=== PATIENT | male | born 1960 | race Caucasian/White ===

== ENCOUNTER 2016-10-10 16:26 | Emergency (ER) | payer OTHER, MEDICARE ==
--- NOTE | 2016-10-10 16:56 | ER Document Report ---
ED Medical Screen (RME) - General Stated Complaint: LEG PAIN Time seen by provider: 16:54 Mode of Arrival: Ambulatory Information source: Patient Notes: 65-year-old male presents to ED for DVTs in bilateral lower extremities. He states that a week ago he got an injection in his neck for due to neck and lower back pain. Saturday she started with his veins all bulging out with pain cramping and burning and bilateral legs. He went for a venous Doppler today and says that he has DVTs both legs beginning in the distal thigh extending through the popliteal veins into the calf veins. I have greeted and performed a rapid initial assessment of this patient. A comprehensive ED assessment and evaluation of the patient, analysis of test results and completion of medical decision making process will be conducted by an additional ED providers. TRAVEL OUTSIDE OF THE [place] IN LAST 30 DAYS: No - Related Data Allergies/Adverse Reactions: No Known Allergies Allergy (Unverified 05/02/12 19:34) Past Medical History Pulmonary Medical History: Denies: Hx Tuberculosis Neurological Medical History: Reports: Hx Migraine Endocrine Medical History: Reports: Hx Diabetes Mellitus Type 2. Denies: Hx Graves' Disease, Hx Hyperthyroidism, Hx Hypothyroidism GI Medical History: Reports: Hx Gastroesophageal Reflux Disease, Hx Irritable Bowel. Denies: Hx Crohn's Disease, Hx Hiatal Hernia, Hx Liver Failure, Hx Ulcer Musculoskeltal Medical History: Reports Hx Arthritis Past Surgical History: Reports: Hx Orthopedic Surgery. Denies: Hx Colostomy, Hx Pacemaker - Immunizations Hx Diphtheria, Pertussis, Tetanus Vaccination: Yes
[2016-10-10 17:28] LABS: PROTHROMBIN TIME 13.8 SEC (11.4-15.4)
[2016-10-10 17:29] LABS: PARTIAL THROMBOPLASTIN TIME 32.3 SEC (23.5-35.8)
[2016-10-10 17:31] LABS: ABSOLUTE EOSINOPHILS # (AUTO) 0.1 10^3/uL (0.0-0.6); ABSOLUTE LYMPHOCYTES (AUTO) 1.8 10^3/uL (0.5-4.7); ABSOLUTE MONOCYTES (AUTO) 0.6 10^3/uL (0.1-1.4); ABSOLUTE NEUT (AUTO) 5.3 10^3/uL (1.7-8.2); BASOPHILS % (AUTO) 0.4 % (0-2); EOSINOPHILS % (AUTO) 1.1 % (0-6); HEMATOCRIT 50.5 % (37.9-51.0); HEMOGLOBIN 16.8 g/dL (13.5-17.0); HGB HCT DIFFERENCE -0.1; LYMPHOCYTES % (AUTO) 23.7 % (13-45); MEAN CORPUSCULAR HEMOGLOBIN 28.3 pg (27.0-33.4); MEAN CORPUSCULAR HGB CONC 33.3 g/dL (32.0-36.0); MEAN CORPUSCULAR VOLUME 85 fl (80-97); MONOCYTES % (AUTO) 7.4 % (3-13); RED BLOOD COUNT 5.95 10^6/uL (4.35-5.55); RED CELL DISTRIBUTION WIDTH 18.1 % (11.5-14.0); SEGMENTED NEUTROPHILS % (AUTO) 67.4 % (42-78); WHITE BLOOD COUNT 7.8 10^3/uL (4.0-10.5)
[2016-10-10] MEDS ORDERED: RIVAROXABAN 15 MG TABLET PO ONE (17:38)
[2016-10-10 17:43] LABS: ALANINE AMINOTRANSFERASE 41 U/L (21-72); ALBUMIN 4.6 g/dL (3.5-5.0); ALKALINE PHOSPHATASE 46 U/L (38-126); ANION GAP 14 (5-19); ASPARTATE AMINO TRANSFERASE 41 U/L (17-59); BILIRUBIN,TOTAL 0.6 mg/dL (0.2-1.3); BLOOD UREA NITROGEN 20 mg/dL (7-20); CARBON DIOXIDE 21 mmol/L (22-30); CHLORIDE 102 mmol/L (98-107); CREATININE RESULT 0.88 mg/dL (0.52-1.25); GLUCOSE 187 mg/dL (75-110); POTASSIUM 4.1 mmol/L (3.6-5.0); TOTAL PROTEIN 7.3 g/dL (6.3-8.2)
--- NOTE | 2016-10-10 17:43 | ER Document Report ---
ED General - General Chief Complaint: Leg Pain Stated Complaint: LEG PAIN Time seen by provider: 17:38 Mode of Arrival: Ambulatory Information source: Patient Notes: 55-year-old male reports 6 day history of enlargement of veins in both lower legs and cramping discomfort in posterior calves bilaterally. The patient had a cervical epidural injection by Dr. Corrales pain management 7 days ago and traveled to [place] 5 days ago but he reports his symptoms and his legs began before the trip. The patient reports he had probable with dilated veins that bled easily when he was much younger but his knowledge no prior history of any blood clots. He reports he has occasional cervical spine and chronic pain and lumbar spine. He also reports history of peptic ulcer disease for which she has had endoscopies in the past and is on Prevacid now or he reports has been years since he had an ulcer he has not noted any hematemesis, hematochezia, melena, or hematuria. Other than cervical epidural 7 days ago he reports no other recent surgery or procedures. He reports no family history of blood clotting and he has no knowledge of any prior blood clotting. Patient reported to his pain management doctor his lower extremity symptoms and had an outpatient Doppler study today that showed extensive DVT from mid thigh down in both lower extremities. Patient reports no associated chest pain, shortness breath, diaphoresis, or vomiting. Physical Exam: General: Alert, appears well. HEENT: Normocephalic. Atraumatic. PERRLA. Extraocular movements intact. Oropharynx clear. Neck: Supple. Non-tender. No lesions hematoma or swelling in his posterior neck Respiratory: No respiratory distress. Clear and equal breath sounds bilaterally. Cardiovascular: Regular rate and rhythm. Abdominal: Normal Inspection. Soft, non-tender. No distension. Normal Bowel Sounds. Back: Non-tender. No deformity or step off. Extremities: Moves all four extremities. Upper extremities: Normal inspection. Non-tender. Normal color. Normal ROM. Normal temperature. Lower extremities: Both lower extremities warm with 2+ pulses of cyanosis no edema he has prominent veins more so on the left than the right that are easily diminished with palpation. I do not palpate any cords. His equivocal Homans sign bilaterally. See no gross edema or swelling to either lower extremity. Neurological: Speech clear mentation normal ambulates without difficulty moves all extremities well Psychological: Normal affect. Normal Mood. Skin: Warm. Dry. Normal color. TRAVEL OUTSIDE OF THE [place] 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 Denies: Hx Graves' Disease, Hx Hyperthyroidism, Hx Hypothyroidism Renal/ Medical History: Denies: Hx Peritoneal Dialysis GI Medical History: Reports: Hx Gastroesophageal Reflux Disease, Hx Irritable Bowel, Hx Ulcer. Denies: Hx Crohn's Disease, Hx Hiatal Hernia, Hx Liver Failure Musculoskeltal Medical History: Reports Hx Arthritis Past Surgical History: Reports: Hx Orthopedic Surgery. Denies: Hx Colostomy, Hx Pacemaker - Immunizations Hx Diphtheria, Pertussis, Tetanus Vaccination: Yes Review of Systems - Review of Systems Constitutional: denies: Chills, Fever EENT: denies: Ear pain, Throat pain Cardiovascular: denies: Chest pain, Syncope, Dizziness Respiratory: denies: Cough, Short of breath Gastrointestinal: denies: Abdominal pain, Diarrhea, Blood in vomit, Black stools , Rectal bleeding Genitourinary: denies: Burning, Dysuria Musculoskeletal: See HPI Skin: See HPI Hematologic/Lymphatic: denies: Swollen glands Neurological/Psychological: No symptoms reported Physical Exam - Vital signs Vitals: Temp Pulse Resp BP Pulse Ox 97.8 F 69 18 154/68 H 98 10/10/16 16:36 10/10/16 16:36 10/10/16 16:36 10/10/16 16:36 10/10/16 16:36 Course - Re-evaluation Re-evalutation: 10/10/16 18:48 Xarelto information is reviewed and I recommend holding anticoagulation for 26 hours after removal of an epidural catheter. The patient is 7 days out from his cervical spine instrumentation I believe on balance risk and benefits favor anticoagulation. Patient we discharged on Xarelto and provide him with outpatient referral in case his judge Dr. Ruiz cannot provide follow- up for anticoagulation repeat Doppler study. - Vital Signs Vital signs: Temp Pulse Resp BP Pulse Ox 97.8 F 69 18 154/68 H 98 10/10/16 16:36 10/10/16 16:36 10/10/16 16:36 10/10/16 16:36 10/10/16 16:36 - Laboratory Result Diagrams: 10/10/16 17:10 10/10/16 17:10 Laboratory results interpreted by me: 10/10/16 10/10/16 17:10 17:10 RBC 5.95 H RDW 18.1 H Carbon Dioxide 21 L Glucose 187 H Discharge - Discharge Clinical Impression: DVT (deep venous thrombosis) Qualifiers: DVT location: lower extremity Affected thrombotic vein of extremity: unspecified lower extremity proximal vein Laterality: bilateral Chronicity: acute Qualified Code(s): I82.4Y3 - Acute embolism and thrombosis of unspecified deep veins of proximal lower extremity, bilateral Condition: Stable Disposition: HOME, SELF-CARE Additional Instructions: DVT Outpatient Treatment You have deep venous thrombosis (DVT) in your leg. DVT or phlebitis is blood clots within the large deep veins. This causes redness, warmth, and tenderness of the involved area. This problem is more likely to affect people who smoke, take estrogen, have had recent surgery, have been immobile, have had previous DVT, or who have serious underlying health conditions. Keep your legs elevated. A heating pad, 20 minutes every two hours, can help with leg pain. For now, keep walking to a minimum. Don't do any physical work, lifting, or exercise. If the doctor has recommended medication for you, it 's important that you take it. You will be started on a blood-thinning medication. Follow-up is important. Your medication needs to be monitored. Call or return at once if you cough blood or vomit blood, pass black or bloody stool, or have any other unusual bleeding. DVT can cause serious complications. The clots can damage the valves in the veins, leading to chronic pain and swelling. If a clot breaks loose and floats upstream, it can stick in the lungs. A clot in the lungs, called pulmonary embolism, can be life-threatening. Call the doctor or return if you develop increasing leg pain and swelling, leg discoloration, fever, chest pain, or shortness of breath. Prescriptions: Rivaroxaban [Xarelto] 20 mg PO QAM #30 tablet Rivaroxaban [Xarelto 15 mg Tablet] 15 mg PO BID #41 tablet Referrals: DELGADO RUIZ MD [Primary Care Provider] - Follow up in 1 week ANNEMARIE VALLE MD [ACTIVE STAFF] - Follow up in 1 week (Outpatient follow- up referral for bilateral lower extremity DVT on Xarelto)
[2016-10-10 19:05] VITALS: BP 138/65
[2016-10-12 12:38] LABS: PROTEIN S FREE 82 % (57-157); PROTEIN S TOTAL 91 % (60-150)
[2016-10-12 13:53] LABS: ANTITHROMBIN III ACTIVITY 101 % (75-135); PROTEIN S FUNCTIONAL 103 % (63-140)
[2016-10-12 15:38] LABS: PROTEIN C ANTIGEN 64 % (60-150)
[2016-10-13 14:08] LABS: PROTEIN C ACTIVITY 101 % (73-180)
== END 2016-10-10 19:03 | disposition home or self-care (01) ==
LOC: ER 16:26
DX: I82.4Y3 Acute embolism and thrombosis of unspecified deep veins of proximal lower extremity, bilateral (principal); R25.2 Cramp and spasm; M54.2 Cervicalgia; M54.5 Low back pain; G89.29 Other chronic pain; E11.9 Type 2 diabetes mellitus without complications; F17.200 Nicotine dependence, unspecified, uncomplicated; Z79.899 Other long term (current) drug therapy; Z87.11 Personal history of peptic ulcer disease
CPT/HCPCS: 36415; 80053; 81241; 85025; 85300; 85301; 85302; 85305; 85306; 85610; 85730; 99283

== ENCOUNTER → 2016-10-26 | Outpatient (CLI) | payer MEDICARE ==
[2016-10-26 09:15] LABS: ANION GAP 15 (5-19); BLOOD UREA NITROGEN 15 mg/dL (7-20); CALCIUM 9.6 mg/dL (8.4-10.2); CARBON DIOXIDE 24 mmol/L (22-30); CHLORIDE 105 mmol/L (98-107); CHOLESTEROL 114.79 mg/dL (0-200); Direct HDL 34 mg/dL (>40); GLUCOSE 109 mg/dL (75-110); POTASSIUM 4.1 mmol/L (3.6-5.0); SODIUM 143.7 mmol/L (137-145); TRIGLYCERIDES 97 mg/dL (<150)
[2016-10-26 09:25] LABS: DIRECT LDL 64 mg/dL (<100)
== END ==
LOC: OD 07:41
PROVIDERS: ATTEND Internal Medicine Cardiovascular Disease
DX: R74.9 Abnormal serum enzyme level, unspecified (principal); E11.65 Type 2 diabetes mellitus with hyperglycemia; E78.5 Hyperlipidemia, unspecified; R73.09 Other abnormal glucose; R07.9 Chest pain, unspecified; R31.9 Hematuria, unspecified
CPT/HCPCS: 36415; 80048; 80061; 83036

== ENCOUNTER → 2017-01-21 | Outpatient (CLI) | payer MEDICARE ==
[2017-01-21 10:42] LABS: ANION GAP 13 (5-19); BLOOD UREA NITROGEN 23 mg/dL (7-20); CALCIUM 9.4 mg/dL (8.4-10.2); CARBON DIOXIDE 24 mmol/L (22-30); CHLORIDE 105 mmol/L (98-107); CHOLESTEROL 137.63 mg/dL (0-200); CREATININE RESULT 0.96 mg/dL (0.52-1.25); Direct HDL 32 mg/dL (>40); GLUCOSE 143 mg/dL (75-110); POTASSIUM 4.2 mmol/L (3.6-5.0); TRIGLYCERIDES 195 mg/dL (<150)
[2017-01-21 10:52] LABS: DIRECT LDL 71 mg/dL (<100)
== END ==
LOC: OD 08:52
PROVIDERS: ATTEND Internal Medicine Cardiovascular Disease
DX: E11.65 Type 2 diabetes mellitus with hyperglycemia (principal); E78.5 Hyperlipidemia, unspecified
CPT/HCPCS: 36415; 80048; 80061; 83036

== ENCOUNTER → 2017-11-10 | Outpatient (CLI) | payer MEDICARE ==
--- NOTE | 2017-11-10 14:11 | RADIOLOGY REPORT (SQ) ---
EXAM DESCRIPTION: CHEST 2 VIEWS COMPLETED DATE/TIME: 11/10/2017 2:01 pm REASON FOR STUDY: EPA AND LATERAL DIAGNOSIS COMPARISON: 08/26/2014 EXAM PARAMETERS: NUMBER OF VIEWS: two views TECHNIQUE: Digital Frontal and Lateral radiographic views of the chest acquired. RADIATION DOSE: NA LIMITATIONS: none FINDINGS: LUNGS AND PLEURA: No opacities, masses or pneumothorax. No pleural effusion. MEDIASTINUM AND HILAR STRUCTURES: No masses or contour abnormalities. HEART AND VASCULAR STRUCTURES: Heart normal size. No evidence for failure. BONES: No acute findings. HARDWARE: None in the chest. OTHER: No other significant finding. IMPRESSION: NO ACUTE RADIOGRAPHIC FINDING IN THE CHEST. TECHNICAL DOCUMENTATION: JOB ID: [id number] [email or web address]- All Rights Reserved Reading location - IP/workstation name: [email or web address]
== END ==
LOC: RAD 13:47
PROVIDERS: ATTEND Internal Medicine
DX: J18.9 Pneumonia, unspecified organism (principal)
CPT/HCPCS: 71046

== ENCOUNTER → 2018-04-01 | Outpatient (CLI) | payer MEDICARE ==
[2018-04-01 12:15] LABS: APPEARANCE,URINE CLEAR; BILIRUBIN,URINE NEGATIVE (NEGATIVE); COLOR,URINE YELLOW; GLUCOSE, URINE NEGATIVE (NEGATIVE); KETONES,URINE NEGATIVE (NEGATIVE); LEUKOCYTE ESTERASE,URINE NEGATIVE (NEGATIVE); NITRITE,URINE NEGATIVE (NEGATIVE); PROTEIN,URINE NEGATIVE (NEGATIVE); URINE SPECIFIC GRAVITY 1.014; UROBILINOGEN,URINE NEGATIVE mg/dL (<2.0)
[2018-04-01 12:17] LABS: ABSOLUTE BASOPHILS # (AUTO) 0.1 10^3/uL (0.0-0.2); ABSOLUTE EOSINOPHILS # (AUTO) 0.3 10^3/uL (0.0-0.6); ABSOLUTE LYMPHOCYTES (AUTO) 2.5 10^3/uL (0.5-4.7); ABSOLUTE MONOCYTES (AUTO) 0.6 10^3/uL (0.1-1.4); ABSOLUTE NEUT (AUTO) 5.4 10^3/uL (1.7-8.2); BASOPHILS % (AUTO) 0.6 % (0-2); EOSINOPHILS % (AUTO) 3.2 % (0-6); HEMATOCRIT 48.5 % (37.9-51.0); HEMOGLOBIN 17.3 g/dL (13.5-17.0); LYMPHOCYTES % (AUTO) 28.3 % (13-45); MEAN CORPUSCULAR HEMOGLOBIN 31.9 pg (27.0-33.4); MEAN CORPUSCULAR HGB CONC 35.7 g/dL (32.0-36.0); MEAN CORPUSCULAR VOLUME 89 fl (80-97); MONOCYTES % (AUTO) 6.8 % (3-13); PLATELET COUNT 148 10^3/uL (150-450); RED BLOOD COUNT 5.44 10^6/uL (4.35-5.55); RED CELL DISTRIBUTION WIDTH 13.5 % (11.5-14.0); SEGMENTED NEUTROPHILS % (AUTO) 61.1 % (42-78); TOTAL CELLS COUNTED % (AUTO) 100 %; WHITE BLOOD COUNT 8.9 10^3/uL (4.0-10.5)
[2018-04-01 12:29] LABS: INTERNATIONAL RATION (INR) 0.95; PROTHROMBIN TIME 13.2 SEC (11.4-15.4)
== END ==
LOC: OD 10:13
PROVIDERS: ATTEND Student in an Organized Health Care Education/Training Program
DX: Z51.81 Encounter for therapeutic drug level monitoring (principal); Z79.01 Long term (current) use of anticoagulants
CPT/HCPCS: 36415; 81001; 85025; 85610; 85730

== ENCOUNTER → 2018-05-05 | Outpatient (CLI) | payer OTHER ==
[2018-05-05 14:45] LABS: ABSOLUTE EOSINOPHILS # (AUTO) 0.2 10^3/uL (0.0-0.6); ABSOLUTE LYMPHOCYTES (AUTO) 2.2 10^3/uL (0.5-4.7); ABSOLUTE MONOCYTES (AUTO) 0.6 10^3/uL (0.1-1.4); ABSOLUTE NEUT (AUTO) 4.6 10^3/uL (1.7-8.2); BASOPHILS % (AUTO) 0.6 % (0-2); EOSINOPHILS % (AUTO) 2.3 % (0-6); HEMATOCRIT 47.8 % (37.9-51.0); HEMOGLOBIN 16.8 g/dL (13.5-17.0); LYMPHOCYTES % (AUTO) 28.7 % (13-45); MEAN CORPUSCULAR HEMOGLOBIN 31.3 pg (27.0-33.4); MEAN CORPUSCULAR HGB CONC 35.1 g/dL (32.0-36.0); MEAN CORPUSCULAR VOLUME 89 fl (80-97); MONOCYTES % (AUTO) 8.2 % (3-13); PLATELET COUNT 147 10^3/uL (150-450); RED BLOOD COUNT 5.37 10^6/uL (4.35-5.55); RED CELL DISTRIBUTION WIDTH 13.3 % (11.5-14.0); SEGMENTED NEUTROPHILS % (AUTO) 60.2 % (42-78); TOTAL CELLS COUNTED % (AUTO) 100 %; WHITE BLOOD COUNT 7.6 10^3/uL (4.0-10.5)
[2018-05-05 15:02] LABS: INTERNATIONAL RATION (INR) 0.99; PROTHROMBIN TIME 13.6 SEC (11.4-15.4)
[2018-05-05 15:03] LABS: PARTIAL THROMBOPLASTIN TIME 32.3 SEC (23.5-35.8)
[2018-05-05 16:10] LABS: APPEARANCE,URINE CLEAR; BILIRUBIN,URINE NEGATIVE (NEGATIVE); COLOR,URINE LIGHT YELLOW; GLUCOSE, URINE NEGATIVE (NEGATIVE)
[2018-05-05 16:11] LABS: ADD MANUAL MICROSCOPIC YES; BACTERIA,URINE TRACE /HPF; HYALINE CASTS, URINE 0-1 /LPF; KETONES,URINE NEGATIVE (NEGATIVE); LEUKOCYTE ESTERASE,URINE TRACE (NEGATIVE); NITRITE,URINE NEGATIVE (NEGATIVE); PROTEIN,URINE NEGATIVE (NEGATIVE); URINE SPECIFIC GRAVITY 1.018; UROBILINOGEN,URINE NEGATIVE mg/dL (<2.0)
== END ==
LOC: OD 14:00
PROVIDERS: ATTEND Student in an Organized Health Care Education/Training Program
DX: Z79.01 Long term (current) use of anticoagulants (principal); Z51.81 Encounter for therapeutic drug level monitoring
CPT/HCPCS: 36415; 81001; 85025; 85610; 85730

== ENCOUNTER 2018-08-06 08:07 | Day surgery (SDC) | payer OTHER, MEDICARE ==
--- NOTE | 2018-07-30 11:45 | RADIOLOGY REPORT (SQ) ---
EXAM DESCRIPTION: CHEST PA/LATERAL COMPLETED DATE/TIME: 07/30/2018 11:27 am REASON FOR STUDY: PRE-OP COMPARISON: 11/10/2017 EXAM PARAMETERS: NUMBER OF VIEWS: two views TECHNIQUE: Digital Frontal and Lateral radiographic views of the chest acquired. RADIATION DOSE: NA LIMITATIONS: none FINDINGS: LUNGS AND PLEURA: No opacities, masses or pneumothorax. No pleural effusion. MEDIASTINUM AND HILAR STRUCTURES: No masses or contour abnormalities. HEART AND VASCULAR STRUCTURES: Heart normal size. No evidence for failure. BONES: No acute findings. HARDWARE: None in the chest. OTHER: No other significant finding. IMPRESSION: NO SIGNIFICANT RADIOGRAPHIC FINDING IN THE CHEST. TECHNICAL DOCUMENTATION: JOB ID: [id number] [employer]- All Rights Reserved Reading location - IP/workstation name: [email or web address]
[2018-08-05 15:52] LABS: ABSOLUTE EOSINOPHILS # (AUTO) 0.2 10^3/uL (0.0-0.6); ABSOLUTE LYMPHOCYTES (AUTO) 2.7 10^3/uL (0.5-4.7); ABSOLUTE MONOCYTES (AUTO) 0.6 10^3/uL (0.1-1.4); ABSOLUTE NEUT (AUTO) 3.9 10^3/uL (1.7-8.2); BASOPHILS % (AUTO) 0.7 % (0-2); EOSINOPHILS % (AUTO) 2.2 % (0-6); HEMOGLOBIN 18.2 g/dL (13.5-17.0); LYMPHOCYTES % (AUTO) 35.8 % (13-45); MEAN CORPUSCULAR HEMOGLOBIN 30.8 pg (27.0-33.4); MEAN CORPUSCULAR HGB CONC 35.8 g/dL (32.0-36.0); MEAN CORPUSCULAR VOLUME 86 fl (80-97); MONOCYTES % (AUTO) 8.2 % (3-13); PLATELET COUNT 145 10^3/uL (150-450); RED BLOOD COUNT 5.92 10^6/uL (4.35-5.55); RED CELL DISTRIBUTION WIDTH 13.1 % (11.5-14.0); SEGMENTED NEUTROPHILS % (AUTO) 53.1 % (42-78); TOTAL CELLS COUNTED % (AUTO) 100 %; WHITE BLOOD COUNT 7.4 10^3/uL (4.0-10.5)
[2018-08-05 16:28] LABS: ANION GAP 10 (5-19); BLOOD UREA NITROGEN 20 mg/dL (7-20); CALCIUM 9.7 mg/dL (8.4-10.2); CARBON DIOXIDE 27 mmol/L (22-30); CHLORIDE 102 mmol/L (98-107); GLUCOSE 112 mg/dL (75-110); POTASSIUM 4.8 mmol/L (3.6-5.0); SODIUM 139.1 mmol/L (137-145)
--- NOTE | 2018-08-05 18:51 | EKG REPORT ---
SEVERITY:- ABNORMAL ECG - SINUS RHYTHM FIRST DEGREE AV BLOCK : Confirmed by: Mark Rico MD 05-Aug-2018 18:50:48
[~2018-08-06 08:07] MED LIST: BUPIVACAINE HCL 0.5%-EPI 1:200000 INJ/PF 30 ML VIAL ONE; LACTATED RINGERS 1000 ML IV PRN; LIDOCAINE 0.5% INJ-PF (5 MG/ML) 50 ML SDV SUBCUT PRN; LIDOCAINE 1% INJ-PF (10 MG/ML) 30 ML SDV ONE
[2018-08-06] MEDS ORDERED: CEFAZOLIN 1 GM/D5W RTU 1 GM/50 ML RTUPB IV ONE (09:56)
[2018-08-06] MEDS ORDERED: LIDOCAINE 2% INJ-PF (20 MG/ML) 10 ML AMPUL ONE (10:00)
[2018-08-06] MEDS ORDERED: MIDAZOLAM 2 MG/2 ML INJ ONE (10:00)
[2018-08-06] MEDS ORDERED: EPHEDRINE SULFATE INJ 50 MG/1 ML AMPULE ONE (10:00)
[2018-08-06] MEDS ORDERED: FENTANYL CITRATE INJ/PF 100 MCG/2 ML AMPUL ONE (10:00)
[2018-08-06] MEDS ORDERED: PROPOFOL INJ 200 MG/20 ML VIAL IV ONE ×2 (10:01→12:04)
[2018-08-06] MEDS ORDERED: SODIUM BICARBONATE 8.4% INJ 50 MEQ/50 ML DISP.SYRIN ONE (10:01)
[2018-08-06] MEDS ORDERED: DIPHENHYDRAMINE HCL 50 MG/ML VIAL IV PRN (11:30)
[2018-08-06] MEDS ORDERED: PROMETHAZINE HCL INJ 25 MG/1 ML VIAL IV PRN ×2 (11:30)
[2018-08-06] MEDS ORDERED: MEPERIDINE HCL/PF INJ 25 MG/1 ML DISP.SYRIN IV PRN (11:30)
[2018-08-06] MEDS ORDERED: FENTANYL CITRATE INJ/PF 100 MCG/2 ML AMPUL IV PRN ×3 (11:30)
[2018-08-06] MEDS ORDERED: MORPHINE SULFATE 10 MG/ML INJ IV PRN (11:30)
[2018-08-06] MEDS: FENTANYL CITRATE INJ/PF 100 MCG/2 ML AMPUL ONE ×2 (13:04→13:09)
[2018-08-06] MEDS: MORPHINE SULFATE 10 MG/ML INJ ONE ×2 (13:05→13:10)
[2018-08-06] MEDS ORDERED: OXYCODONE-ACETAMINOPHEN 5-325 MG TABLET ONE (13:45)
--- NOTE | 2018-08-06 14:26 | RADIOLOGY REPORT (SQ) ---
EXAM DESCRIPTION: NO CHG FLUORO COMPLETED DATE/TIME: 08/06/2018 1:52 pm REASON FOR STUDY: SPINAL STIMULATOR PLCMT ASST WITH FLUORO IN OR G89.4 CHRONIC PAIN SYNDROME COMPARISON: 07/30/2017 FLUOROSCOPY TIME: 3.3 minutes 9 Images saved to PACS TECHNIQUE: Intra-operative images acquired during surgical procedure to evaluate progress. NUMBER OF IMAGES: 9 LIMITATIONS: None. FINDINGS: Multiple intraoperative fluoroscopic images obtained to evaluate surgical progress. Pleas e see operative report for detailed description. IMPRESSION: IMAGE(S) OBTAINED DURING PROCEDURE. COMMENT: Quality ID [id number]: Final reports for procedures using fluoroscopy that document radiation exp osure indices, or exposure time and number of fluorographic images (if radiation exposure indices are not available) Please consult full operative report of the attending physician for description of the procedure. TECHNICAL DOCUMENTATION: JOB ID: [id number] [employer]- All Rights Reserved Reading location - IP/workstation name: [email or web address]
--- NOTE | 2018-08-06 14:33 | RADIOLOGY REPORT (SQ) ---
EXAM DESCRIPTION: THORACOLUMBAR SPINE AP/LAT COMPLETED DATE/TIME: 08/06/2018 1:52 pm REASON FOR STUDY: SPINAL STIMULATOR PLCMT ASST WITH FLUORO IN OR G89.4 CHRONIC PAIN SYNDROME COMPARISON: None. FLUOROSCOPY TIME: 3.3 minutes 9 images saved to PACS. TECHNIQUE: Intra-operative images acquired during surgical procedure to evaluate progress. NUMBER OF IMAGES: 9 LIMITATIONS: None. FINDINGS: Fluoroscopic images obtained of the thoracolumbar spine for intraoperative localization du ring spinal stimulator placement. Please see operative report for detailed description of procedure. IMPRESSION: IMAGE(S) OBTAINED DURING PROCEDURE. COMMENT: Quality ID [id number]: Final reports for procedures using fluoroscopy that document radiation exp osure indices, or exposure time and number of fluorographic images (if radiation exposure indices are not available) Please consult full operative report of the attending physician for description of the procedure. TECHNICAL DOCUMENTATION: JOB ID: [id number] [employer]- All Rights Reserved Reading location - IP/workstation name: [email or web address]
[2018-08-06 14:51] VITALS: BP 129/78
--- NOTE | 2018-08-07 06:27 | OPERATIVE REPORT E ---
Operative Report NAME: KISHAN MARSH : 1960 AGE: 57Y DATE OF SURGERY: 08/06/2018 ROOM: PREOPERATIVE DIAGNOSES: 1. POSTLAMINECTOMY PAIN SYNDROME. 2. LUMBAR RADICULOPATHY. POSTOPERATIVE DIAGNOSES: 1. POSTLAMINECTOMY PAIN SYNDROME. 2. LUMBAR RADICULOPATHY. OPERATION: Spinal cord stimulator implant with IPG with [employer]. SURGEON: GILDA BOWMAN M.D. ASSOCIATE PROFESSOR OF CHEMISTRY: Niko Mauro MD ANESTHESIA: MAC. COMPLICATIONS: None. PROCEDURE IN DETAIL: After obtaining informed consent, I advised the patient of all the risks and benefits, including serious neurological injury, bleeding, infection, spinal fluid leak, allergic reaction, paralysis, nerve injury, , and failure to obtain satisfactory relief. He was taken to the operating room, placed comfortably in the prone position. MAC anesthesia was administered after application of monitoring. He was then prepped with ChloraPrep x2 and then draped after appropriate waiting and drying time. He was then evaluated with fluoroscopy and adequate space was found at T12-L1. The skin over both the premarked buttock incision on the right and the midline were anesthetized with 1% lidocaine with bicarbonate followed by 0.25% bupivacaine with epinephrine. Beginning at the midline incision, sharp and blunt dissection was performed down to the fascia. Using a left paramedian approach, a 14-gauge Tuohy needle was placed in the epidural space at T12-L1. Loss of resistance with saline technique was utilized beginning with the first needle. No CSF was obtained. Intermittent fluoroscopy was used to confirm depth. The electrode was advanced under fluoroscopic guidance to the top/mid of T8, being positioned in the midline. The second lead was placed through a second needle using the same technique with loss of resistance using a right paramedian approach on the right side. Lateral views were taken, initially showed satisfactory placement at the top of T9. The leads were then tested and appropriate stimulation was found after discussion with the patient. Once again, the leads were then secured using pursestrings with anchors in place. The anchors were then sutured in place. The needles were removed sequentially. The pursestrings were secured and the anchor was placed and secured as well. While lead positioning was occurring, Niko Mauro M.D. was assisting in creating the pocket for the new pulse generator. As soon as the pocket was made, proper hemostasis was confirmed. The skin between tunneling was then performed using anesthesia with 1% lidocaine and the standard tunneling tool. Both incisions were felt to be satisfactory and proper hemostasis was confirmed. The wires were easily placed in the midline, stitched to the pocket, and connected to the pulse generator, which was then tested and appropriate communication was made. All connections were secure. The generator was then placed in the pocket and assessed and found to be satisfactory. The position was again rechecked via fluoroscopy in both the AP and lateral views. The wounds were then copiously irrigated. The areas were then closed with interrupted vertical mattress suture using 2-0 Vicryl. [place] were used in the midline. Tape and Dermabond over the buttock incision with skin cement. OpSite dressings were then placed over the tape. The patient was taken to the PACU for further postoperative care and monitoring. DICTATING PHYSICIAN: GILDA BOWMAN M.D. [id number] PHY#: [id number] ID: [id number] JOB#: [id number] ACCT: [id number] cc:GILDA BOWMAN M.D. >
== END 2018-08-06 14:50 | disposition home or self-care (01) ==
LOC: OROUT 08:07
PROVIDERS: ATTEND Student in an Organized Health Care Education/Training Program
DX: G89.4 Chronic pain syndrome (principal); M96.1 Postlaminectomy syndrome, not elsewhere classified; M54.16 Radiculopathy, lumbar region; M47.892 Other spondylosis, cervical region; E78.5 Hyperlipidemia, unspecified; I25.2 Old myocardial infarction; G47.30 Sleep apnea, unspecified; K21.9 Gastro-esophageal reflux disease without esophagitis; M19.90 Unspecified osteoarthritis, unspecified site; Z86.718 Personal history of other venous thrombosis and embolism; E11.9 Type 2 diabetes mellitus without complications; G43.809 Other migraine, not intractable, without status migrainosus; K59.00 Constipation, unspecified; Z79.899 Other long term (current) drug therapy; Z79.891 Long term (current) use of opiate analgesic; Z79.82 Long term (current) use of aspirin
CPT/HCPCS: 93005; 36415; 85025; 80048; 71046; 72080; 93010; 63685; 63650; C1778; J2250; J3490 ×4; J0690; J3010; J2270; J2704; 1936

== ENCOUNTER 2019-04-06 16:09 | Emergency (ER) | payer MEDICARE, OTHER ==
[2019-04-06 16:35] VITALS: BP 127/84
--- NOTE | 2019-04-06 17:48 | ER Document Report ---
ED Medical Screen (RME) - General Chief Complaint: Shortness Of Breath Stated Complaint: CHEST TIGHTNESS Time Seen by Provider: 04/06/19 17:43 Primary Care Provider: BOWEN DUKES FNP [Primary Care Provider] - Follow up as needed Mode of Arrival: Ambulatory Information source: Patient Notes: 58-year-old male presented to ED for complaint of flulike symptoms for a week. He states he went to pain management today and the doctor told him that he either had a bladder infection or pneumonia he needed to come to the hospital. He states he is coughing up a lot of thick yellow secretions. He states he been having a fever but he did not check his temperature he has been having a lot of sweats and chills. He states he soaked the bed a couple times in the cell for a couple times this week. Denies history of high blood pressure or cholesterol. He states he did have a cardiac event one time but is not sure what. Urine I have greeted and performed a rapid initial assessment of this patient. A comprehensive ED assessment and evaluation of the patient, analysis of test results and completion of medical decision making process will be conducted by an additional ED providers. TRAVEL OUTSIDE OF THE [place] IN LAST 30 DAYS: No - Related Data Smoking: Cigar - 2pd Frequency of alcohol use: Social Drug Abuse: None - No Allergies/Adverse Reactions: No Known Allergies Allergy (Verified 04/06/19 16:10) Past Medical History - Past Medical History Cardiac Medical History: Reports: Hx Heart Murmur Pulmonary Medical History: Reports: Hx Pneumonia Neurological Medical History: Reports: Hx Migraine. Denies: Hx Cerebrovascular Accident, Hx Seizures Endocrine Medical History: Reports: Hx Diabetes Mellitus Type 2. Denies: Hx Graves' Disease, Hx Hyperthyroidism, Hx Hypothyroidism Renal/ Medical History: Denies: Hx Peritoneal Dialysis GI Medical History: Reports: Hx Gastroesophageal Reflux Disease, Hx Irritable Bowel, Hx Ulcer. Denies: Hx Crohn's Disease, Hx Hiatal Hernia, Hx Liver Failure, Hx Pancreatitis Musculoskeltal Medical History: Reports Hx Arthritis, Reports Hx Musculoskeletal Deformity, Reports Hx Musculoskeletal Trauma, Denies Hx Systemic Lupus Erythematosus Past Surgical History: Reports: Hx Orthopedic Surgery. Denies: Hx Colostomy, Hx Pacemaker - Immunizations Hx Diphtheria, Pertussis, Tetanus Vaccination: Yes History of Influenza Vaccine for 04/2017 - 09/2017 Season: Yes Influenza Administration Date for 04/2017 - 09/2017 Season: 04/28/18 Physical Exam - Vital signs Vitals: Temp Pulse Resp BP Pulse Ox 98.1 F 86 16 127/84 H 100 04/06/19 16:23 04/06/19 16:23 04/06/19 16:23 04/06/19 16:23 04/06/19 16:23 Course - Vital Signs Vital signs: Temp Pulse Resp BP Pulse Ox 98.1 F 86 16 127/84 H 100 04/06/19 16:23 04/06/19 16:23 04/06/19 16:23 04/06/19 16:23 04/06/19 16:23 Doctor's Discharge - Discharge Referrals: BOWEN DUKES FNP [Primary Care Provider] - Follow up as needed
[2019-04-06] MEDS ORDERED: ASPIRIN 81 MG TABLET, CHEWABLE PO ONE (17:49)
--- NOTE | 2019-04-06 18:41 | RADIOLOGY REPORT (SQ) ---
EXAM DESCRIPTION: CHEST 2 VIEWS COMPLETED DATE/TIME: 04/06/2019 6:33 pm REASON FOR STUDY: cough congestion fever COMPARISON: 07/30/2018 EXAM PARAMETERS: NUMBER OF VIEWS: two views TECHNIQUE: Digital Frontal and Lateral radiographic views of the chest acquired. RADIATION DOSE: NA LIMITATIONS: none FINDINGS: LUNGS AND PLEURA: No opacities, masses or pneumothorax. No pleural effusion. MEDIASTINUM AND HILAR STRUCTURES: No masses or contour abnormalities. HEART AND VASCULAR STRUCTURES: Heart normal size. No evidence for failure. BONES: No acute findings. HARDWARE: Neurostimulator electrodes. OTHER: No other significant finding. IMPRESSION: NO ACUTE RADIOGRAPHIC FINDING IN THE CHEST. TECHNICAL DOCUMENTATION: JOB ID: [id number] [employer]- All Rights Reserved Reading location - IP/workstation name: [email or web address]
[2019-04-06 19:19] LABS: ABSOLUTE BASOPHILS # (AUTO) 0.1 10^3/uL (0.0-0.2); ABSOLUTE EOSINOPHILS # (AUTO) 0.2 10^3/uL (0.0-0.6); ABSOLUTE LYMPHOCYTES (AUTO) 2.7 10^3/uL (0.5-4.7); ABSOLUTE MONOCYTES (AUTO) 0.8 10^3/uL (0.1-1.4); ABSOLUTE NEUT (AUTO) 4.1 10^3/uL (1.7-8.2); BASOPHILS % (AUTO) 0.8 % (0-2); EOSINOPHILS % (AUTO) 2.8 % (0-6); HEMATOCRIT 53.8 % (37.9-51.0); HEMOGLOBIN 18.7 g/dL (13.5-17.0); LYMPHOCYTES % (AUTO) 34.4 % (13-45); MEAN CORPUSCULAR HEMOGLOBIN 30.3 pg (27.0-33.4); MEAN CORPUSCULAR HGB CONC 34.8 g/dL (32.0-36.0); MEAN CORPUSCULAR VOLUME 87 fl (80-97); MONOCYTES % (AUTO) 9.8 % (3-13); PLATELET COUNT 130 10^3/uL (150-450); RED BLOOD COUNT 6.18 10^6/uL (4.35-5.55); SEGMENTED NEUTROPHILS % (AUTO) 52.2 % (42-78); TOTAL CELLS COUNTED % (AUTO) 100 %; WHITE BLOOD COUNT 7.8 10^3/uL (4.0-10.5)
[2019-04-06 19:25] LABS: INTERNATIONAL RATION (INR) 0.99; PROTHROMBIN TIME 13.1 SEC (11.4-15.4)
[2019-04-06 19:47] LABS: ALBUMIN 4.6 g/dL (3.5-5.0); ALKALINE PHOSPHATASE 81 U/L (38-126); ANION GAP 11 (5-19); ASPARTATE AMINO TRANSFERASE 151 U/L (17-59); BILIRUBIN,DIRECT 0.2 mg/dL (0.0-0.4); BILIRUBIN,TOTAL 0.6 mg/dL (0.2-1.3); BLOOD UREA NITROGEN 18 mg/dL (7-20); CALCIUM 9.8 mg/dL (8.4-10.2); CARBON DIOXIDE 29 mmol/L (22-30); CHLORIDE 98 mmol/L (98-107); CREATINE KINASE 34 U/L (55-170); GLUCOSE 176 mg/dL (75-110); POTASSIUM 4.7 mmol/L (3.6-5.0); TOTAL PROTEIN 7.6 g/dL (6.3-8.2)
[2019-04-06 20:00] LABS: TROPONIN I < 0.012 ng/mL
--- NOTE | 2019-04-07 08:15 | EKG REPORT ---
SEVERITY:- BORDERLINE ECG - SINUS RHYTHM PROBABLE LEFT ATRIAL ABNORMALITY BORDERLINE INFERIOR Q WAVES : Confirmed by: Wendy House MD 07-Apr-2019 08:14:38
== END 2019-04-06 19:20 | disposition left against medical advice (07) ==
LOC: ER 16:09
DX: R06.02 Shortness of breath (principal); E11.9 Type 2 diabetes mellitus without complications
CPT/HCPCS: 93005; 36415; 87040; 82553; 82550; 85025; 85610; 85730; 80053; 84484; 71046; 93010; A9270; 99281